=== PATIENT | male | born 1945 | race Caucasian/White ===

== ENCOUNTER → 2017-10-18 | Outpatient (CLI) | payer MEDICARE, MEDICAID | END | disposition home or self-care (01) | LOC: HKI 09:31 | DX: M16.12 Unilateral primary osteoarthritis, left hip (principal); I10 Essential (primary) hypertension; I69.959 Hemiplegia and hemiparesis following unspecified cerebrovascular disease affecting unspecified side | CPT/HCPCS: G0463 ==

== ENCOUNTER → 2018-12-26 | Outpatient (CLI) | payer MEDICARE, OTHER | END | disposition home or self-care (01) | LOC: HKI 09:04 | DX: M25.552 Pain in left hip (principal) | CPT/HCPCS: 73502 ==